=== PATIENT | male | born 1965 | race African-American/Black ===

== ENCOUNTER → 2017-04-16 | Emergency (ER) | payer MEDICAID ==
[~2017-04-16] VITALS: Ht 188 cm; Wt 102.5 kg
[~2017-04-16] MED LIST: ACHD5005 PO; CIPR-225 PO; CYCL10TA9 PO; HYDROmorphone (DILAUDID) 2 MG/ML VIAL IVP STA; HYDROmorphone (DILAUDID) 2 MG/ML VIAL ONE; HYOS0.1283 SL; IOHEXOL 350 MG/ML 100 ML (OMNIPAQUE 350) VIAL IV ONE; LORazepam INJ 2 MG/ML (ATIVAN) VIAL IVP ONE; LORazepam INJ 2 MG/ML (ATIVAN) VIAL ONE; NAPR-243 PO; NS 100 ML (IVPB) BAG IV ONE; NS IV 1000 ML 1,000 ML IV ONE; ONDA4TAB8 PO; fentaNYL INJECTION 100 MCG/2 ML AMP IVP ONE
[2017-04-16 05:26] LABS: BASOPHILS % (AUTO) 0 % (0-10); EOSINOPHILS # (AUTO) 0.2 10^3/uL (0.0-0.3); EOSINOPHILS % (AUTO) 2 % (0-10); LYMPHOCYTES # (AUTO) 5.3 X 10^3 (1.0-4.0); LYMPHOCYTES % (AUTO) 52 % (12-44); MEAN CORPUSCULAR HEMOGLOBIN 31 PG (25-34); MEAN CORPUSCULAR HGB CONC 34 G/DL (32-36); MEAN CORPUSCULAR VOLUME 91 FL (80-99); MEAN PLATELET VOLUME 10.2 FL (7.4-10.4); MONOCYTES # (AUTO) 0.8 X 10^3 (0.0-1.0); MONOCYTES % (AUTO) 8 % (0-12); NEUTROPHILS # (AUTO) 3.9 X 10^3 (1.8-7.8); NEUTROPHILS % (AUTO) 38 % (42-75); PLATELET COUNT 321 10^3/uL (130-400); RED BLOOD COUNT 4.86 10^6/uL (4.35-5.85); RED CELL DISTRIBUTION WIDTH 13.3 % (10.0-14.5); WHITE BLOOD COUNT 10.2 10^3/uL (4.3-11.0)
[2017-04-16 05:42] LABS: ALANINE AMINOTRANSFERASE 18 U/L (0-55); ALBUMIN 3.7 G/DL (3.2-4.5); ANION GAP 11 MMOL/L (5-14); ASPARTATE AMINO TRANSFERASE 16 U/L (5-34); BILIRUBIN,TOTAL 0.1 MG/DL (0.1-1.0); BLOOD UREA NITROGEN 13 MG/DL (7-18); BUN/CREATININE RATIO 13; CALCIUM 9.4 MG/DL (8.5-10.1); CARBON DIOXIDE 24 MMOL/L (21-32); CHLORIDE 108 MMOL/L (98-107); CREATININE SERUM 0.98 MG/DL (0.60-1.30); GFR ESTIMATED > 60; GLUCOSE 95 MG/DL (70-105); LIPASE 38 U/L (8-78); SODIUM 143 MMOL/L (135-145); TOTAL PROTEIN 6.3 G/DL (6.4-8.2)
[2017-04-16 05:47] LABS: BILIRUBIN,URINE NEGATIVE (NEGATIVE); KETONES,URINE NEGATIVE (NEGATIVE); LEUKOCYTE ESTERASE ,URINE 3+ (NEGATIVE); NITRITE,URINE NEGATIVE (NEGATIVE); PH,URINE 6.5 (5-9); PROTEIN,URINE 2+ (NEGATIVE); UROBILINOGEN,URINE NORMAL (NORMAL)
--- NOTE | 2017-04-16 06:22 | ED Abdominal Pain ---
General Chief Complaint: Abdominal/GI Problems Stated Complaint: L ABD PAIN Nursing Triage Note: TO ED 7 [facility]. C/O SEVERE ABD PAIN LLQ, STARTED AT 1999 AFTER EATING PIZZA. HOLDING LEFT POSTERIOR FLANK AND THRASHING ALL OVER BED KICKING FEET Sepsis Screen: No Definite Risk Source of Information: Patient, EMS Exam Limitations: No Limitations (LEXI DOYLE MD) History of Present Illness Time Seen By Provider: 05:12 Initial Comments This 51-year-old man presents to the emergency room via EMS with complaints of severe left lower quadrant and left flank pain. Pain started fairly suddenly around 20:00. He had eaten pizza just prior to that. Patient reports no bowel movements since Friday. He has taken no medications for this pain yet. He denies any fever, vomiting, or diarrhea. He denies any urinary changes. (LEXI DOYLE MD) Allergies and Home Medications Allergies Coded Allergies: No Known Drug Allergies (Unverified , 09/22/10) Home Medications Ciprofloxacin HCl 500 Mg Tablet, 500 MG PO BID, #20 Prescribed by: YESICA GALARZA on 04/16/17 075 Cyclobenzaprine Hcl 10 Mg Tablet, 1 EACH PO Q8HR PRN, #20 Ref 0 Prescribed by: CHASE HENDERSON on 04/04/11 184 Hydrocodone Bit/Acetaminophen 1 Each Tablet, 1-2 EACH PO Q6H PRN, #14 Ref 0 Prescribed by: CHASE HENDERSON on 04/04/11 184 Hyoscyamine Sulfate 0.125 Mg Tab.subl, 1-2 TAB SL Q4H, #10 Prescribed by: YESICA GALARZA on 04/16/17 075 Naproxen 500 Mg Tablet, 1 EACH PO BID PRN, #20 Ref 0 Prescribed by: CHASE HENDERSON on 04/04/11 184 Ondansetron 4 Mg Tab.rapdis, 4 MG PO Q4H, #10 Prescribed by: YESICA GALARZA on 04/16/17 0755 Review of Systems Constitutional: no symptoms reported EENTM: No Symptoms Reported Respiratory: No Symptoms Reported Cardiovascular: No Symptoms Reported Gastrointestinal: See HPI Genitourinary: No Symptoms Reported Musculoskeletal: no symptoms reported Skin: no symptoms reported Psychiatric/Neurological: No Symptoms Reported Endocrine: No Symptoms Reported Hematologic/Lymphatic: No Symptoms Reported (LEXI DOYLE MD) Past Jqnjdno-Lbsyjy-Vbtfht Hx Patient Social History Alcohol Use: Occasionally Uses Recreational Drug Use: Yes (tobacco, etoh, hx of drug abuse) Smoking Status: Current Everyday Smoker Type Used: Cigarettes 2nd Hand Smoke Exposure: No Recent Foreign Travel: No Contact w/Someone Who Travel: No Recent Infectious Disease Expo: No Recent Hopitalizations: No (LEXI DOYLE MD) Seasonal Allergies Seasonal Allergies: No (LEXI DOYLE MD) Respiratory Hx Respiratory Disorders: No (LEXI DOYLE MD) Cardiovascular Hx Cardiac Disorders: No (LEXI DOYLE MD) Neurological Hx Neurological Disorders: No (LEXI DOYLE MD) Reproductive System Hx Reproductive Disorders: No (LEXI DOYLE MD) Genitourinary Hx Genitourinary Disorders: No (LEXI DOYLE MD) Gastrointestinal Hx Gastrointestinal Disorders: No (LEXI DOYLE MD) Musculoskeletal Hx Musculoskeletal Disorders: Yes (disc disease) Musculoskeletal Disorders: Degenerate Disk Disease (LEXI DOYEL MD) Endocrine Hx Endocrine Disorders: No (LEXI DOYLE MD) HEENT HX ENT Disorders: No (LEXI DOYLE MD) Cancer Hx Cancer: No (LEXI DOYLE MD) Psychosocial Hx Psychiatric Problems: No (LEXI DOYLE MD) Integumentary HX Skin/Integumentary Disorder: No (LEXI DOYLE MD) Blood Transfusions Hx Blood Disorders: No (LEXI DOYLE MD) Reviewed Nursing Assessment Reviewed/Agree w Nursing PMH: No (LEXI DOYLE MD) Family Medical History Significant Family History: No Pertinent Family Hx (LEXI DOYLE MD) Physical Exam Vital Signs VS - Last 72 Hours, by Label 04/16/17 04/16/17 05:01 06:18 Temp 98.5 98.5 Pulse 81 Resp 24 B/P (MAP) 121/107 Pulse Ox 96 O2 Delivery Room Air (LEE ANN,YESICA K DO) Vital Signs Capillary Refill : Less Than 3 Seconds (LEXI DOYLE MD) General Appearance: WD/WN, moderate distress HEENT: PERRL/EOMI, normal ENT inspection Neck: normal inspection Respiratory: lungs clear, normal breath sounds, no respiratory distress, no accessory muscle use Cardiovascular: regular rate, rhythm, no edema, no murmur Gastrointestinal: normal bowel sounds, soft, tenderness (left lower quadrant and left flank) Extremities: normal inspection, no pedal edema Neurologic/Psychiatric: medical resident II-XII nml as tested, alert, oriented x 3, other ( very anxious, bordering on hyperventilation. Neurologic exam was initially difficult to obtain due to patient's pain. Once pain was controlled, patient was noted to have diffuse weakness, tremoring, dystonic movements, and stuttering. He is somewhat confused.) Skin: normal color, warm/dry (LEXI DOYLE MD) Progress/Results/Core Measures Results/Orders Lab Results Laboratory Tests Test 04/16/17 05:10 04/16/17 05:37 Range/Units White Blood Count 10.2 4.3-11.0 10^3/uL Red Blood Count 4.86 4.35-5.85 10^6/uL Hemoglobin 14.8 13.3-17.7 G/DL Hematocrit 44 40-54 % Mean Corpuscular Volume 91 80-99 FL Mean Corpuscular Hemoglobin 31 25-34 PG Mean Corpuscular Hemoglobin Concent 34 32-36 G/DL Red Cell Distribution Width 13.3 10.0-14.5 % Platelet Count 321 130-400 10^3/uL Mean Platelet Volume 10.2 7.4-10.4 FL Neutrophils (%) (Auto) 38 L 42-75 % Lymphocytes (%) (Auto) 52 H 12-44 % Monocytes (%) (Auto) 8 0-12 % Eosinophils (%) (Auto) 2 0-10 % Basophils (%) (Auto) 0 0-10 % Neutrophils # (Auto) 3.9 1.8-7.8 X 10^3 Lymphocytes # (Auto) 5.3 H 1.0-4.0 X 10^3 Monocytes # (Auto) 0.8 0.0-1.0 X 10^3 Eosinophils # (Auto) 0.2 0.0-0.3 10^3/uL Basophils # (Auto) 0.0 0.0-0.1 10^3/uL Sodium Level 143 135-145 MMOL/L Potassium Level 4.0 3.6-5.0 MMOL/L Chloride Level 108 H 98-107 MMOL/L Carbon Dioxide Level 24 21-32 MMOL/L Anion Gap 11 5-14 MMOL/L Blood Urea Nitrogen 13 7-18 MG/DL Creatinine 0.98 0.60-1.30 MG/DL Estimat Glomerular Filtration Rate > 60 BUN/Creatinine Ratio 13 Glucose Level 95 70-105 MG/DL Calcium Level 9.4 8.5-10.1 MG/DL Total Bilirubin 0.1 0.1-1.0 MG/DL Aspartate Amino Transf (AST/SGOT) 16 5-34 U/L Alanine Aminotransferase (ALT/SGPT) 18 0-55 U/L Alkaline Phosphatase 76 40-136 U/L Total Protein 6.3 L 6.4-8.2 G/DL Albumin 3.7 3.2-4.5 G/DL Lipase 38 8-78 U/L Urine Color YELLOW Urine Clarity SLIGHTLY CLOUDY Urine pH 6.5 5-9 Urine Specific Benson 1.015 L 1.016-1.022 Urine Protein 2+ H NEGATIVE Urine Glucose (UA) NEGATIVE NEGATIVE Urine Ketones NEGATIVE NEGATIVE Urine Nitrite NEGATIVE NEGATIVE Urine Bilirubin NEGATIVE NEGATIVE Urine Urobilinogen NORMAL NORMAL MG/DL Urine Leukocyte Esterase 3+ H NEGATIVE Urine RBC (Auto) NEGATIVE NEGATIVE Urine RBC NONE /HPF Urine WBC 5-10 H /HPF Urine Squamous Epithelial Cells 10-25 H /HPF Urine Crystals NONE /LPF Urine Bacteria TRACE /HPF Urine Casts NONE /LPF Urine Mucus NEGATIVE /LPF Urine Other LG SPERM H /HPF Urine Culture Indicated YES Urine Opiates Screen NEGATIVE NEGATIVE Urine Oxycodone Screen NEGATIVE NEGATIVE Urine Methadone Screen NEGATIVE NEGATIVE Urine Propoxyphene Screen NEGATIVE NEGATIVE Urine Barbiturates Screen NEGATIVE NEGATIVE Ur Tricyclic Antidepressants Screen NEGATIVE NEGATIVE Urine Phencyclidine Screen NEGATIVE NEGATIVE Urine Amphetamines Screen POSITIVE H NEGATIVE Urine Methamphetamines Screen NEGATIVE NEGATIVE Urine Benzodiazepines Screen NEGATIVE NEGATIVE Urine Cocaine Screen NEGATIVE NEGATIVE Urine Cannabinoids Screen NEGATIVE NEGATIVE (YESICA GALARZA DO) Medications Given in ED Current Medications Medications Dose Ordered Sig/Alo Route Start Time Stop Time Status Last Admin Dose Admin Fentanyl Citrate 75 mcg ONCE ONCE IVP 04/16/17 05:15 04/16/17 05:18 DC 04/16/17 05:22 75 MCG Fentanyl Citrate 75 mcg ONCE ONCE IVP 04/16/17 06:15 04/16/17 06:16 DC 04/16/17 06:18 75 MCG Iohexol 100 ml ONCE ONCE IV 04/16/17 07:00 04/16/17 07:01 DC 04/16/17 06:53 100 ML Lorazepam 0.5 mg ONCE ONCE IVP 04/16/17 06:45 04/16/17 06:46 DC 04/16/17 06:45 0.5 MG Sodium Chloride 100 ml ONCE ONCE IV 04/16/17 07:00 04/16/17 07:01 DC 04/16/17 06:53 80 ML Sodium Chloride 1,000 ml @ 0 mls/hr Q0M ONCE IV 04/16/17 05:15 04/16/17 05:18 DC 04/16/17 05:22 999 MLS/HR (LEE ANN,YESICA K DO) Vital Signs/I&O Vital Sign - Last 12Hours 04/16/17 04/16/17 05:01 06:18 Temp 98.5 98.5 Pulse 81 Resp 24 B/P (MAP) 121/107 Pulse Ox 96 O2 Delivery Room Air (LEE ANN,YESICA K DO) Blood Pressure Mean: 112 Progress Note #1: Time: 06:21 Progress Note Patient was initially treated with fentanyl 75 g. Initial workup shows no significant abnormalities. CT of the abdomen and pelvis with contrast was ordered. Pain did not remain controlled and a repeat dose of fentanyl was ordered. Progress Note #2: Time: 06:[address] called requesting more medication for pain as patient cannot lie still for the CT scan. A milligram of Dilaudid and 0.5 mg of Ativan was ordered. Progress Note #3: Time: 07:08 Progress Note Patient's behavior continues to be on. He intermittently is stuttering, demonstrating dystonic movements, and exhibiting global weakness. He also is now excessively itching. He denies any substance abuse but states his son may have put something in his medicine box. When asked about the stuttering, he states ever since he has been taking classes to learn other languages he stutters because he has difficulty sorting out the languages. He is a relatively poor historian as is his significant other. CT of the head has been ordered to investigate his bizarre neurological symptoms. Patient's bladder was fairly full on the CT scan. He just voided about 400 mL of urine but states this did not improve his pain. He reports he feels like there are "BBs" under his skin in his left lower abdomen and "knots" in his left lower back. Significant other states patient has been having these dystonic movements and stuttering speech for the past 3 or 4 days. Progress Note #4: Time: 07:15 Progress Note Care of this patient is being transferred to Dr. Galarza at this time. Verbal report was given. (LEXI DOYLE MD) Progress Note : Progress Note 0715--ASSUMED CARE FROM DR. DOYLE, CT HEAD RESULTS PENDING. PT IS SLEEPING AT THIS TIME PT STATES HE FEELS MUCH BETTER AT DISMISSAL (YESICA GALARZA DO) Diagnostic Imaging Diagonstic Imaging: CT Plain Films/CT/US/NM/MRI: head Diagonstic Imaging: CT Plain Films/CT/US/NM/MRI: abdomen, pelvis Comments NAME: RADHA WANG [facility] REC#: [id number] PT STATUS: REG ER : 1965 PHYSICIAN: LEXI DOYLE MD ADMIT DATE: 04/16/17/ER Signed Date of Exam: 04/16/17 CT ABDOMEN/PELVIS W PROCEDURE: CT abdomen and pelvis with contrast. TECHNIQUE: Multiple contiguous axial images were obtained through the abdomen and pelvis after administration of intravenous contrast. INDICATION: Left lower quadrant pain since yesterday after eating pizza. FINDINGS: The lung bases are clear. The liver appears normal. Gallbladder is normal. Bile ducts are not dilated. The pancreas and spleen are normal. The adrenal glands appear normal. Kidneys appear normal. There is normal enhancement of the abdominal organs and vessels following IV contrast. Vessels show no evidence of aneurysm. There is marked distention of the stomach which is fluid-filled. There is very little fluid in the duodenum and small bowel which does raise question of gastric outlet obstruction. The colon shows normal stool and gas pattern without evidence of obstruction or constipation. There is no free air or free fluid. Bladder appears normal. IMPRESSION: 1. Marked distention of the stomach raising concern of gastric outlet obstruction. 2. No findings are seen to indicate appendicitis or diverticulitis. Dictated by: Dictated on workstation # [id number] Dict: 04/16/17 0701 Trans: 04/16/17 1149 Interpreted by: PATTI GODFREY MD Electronically signed by: PATTI GODFREY MD 04/16/17 1149 (LEXI DOYLE MD) Comments CT HEAD--NO ACUTE PROCESS, PER RADIOLOGIST REPORT @ 0750 Reviewed: Reviewed by Me (YESICA GALARZA DO) Departure Impression Impression: Primary Impression: Abdominal pain Qualified Codes: R10.32 - Left lower quadrant pain Additional Impression: Urinary tract infection Qualified Codes: N39.0 - Urinary tract infection, site not specified Disposition: 01 HOME, SELF-CARE Condition: Stable Departure-Patient Inst. Referrals: [facility] (PCP) Primary Care Physician DIEUDONNE MCKEON (Family) Primary Care Physician Patient Instructions: Acute Abdomen (Belly Pain), Adult (DC), Urinary Tract Infection, Adult (DC) Add. Discharge Instructions: CLEAR LIQUIDS--WATER, BROTH, JELLO, GATORADE TOMORROW IF YOU ARE BETTER, ADD BRATS DIET TO CLEAR LIQUIDS--BANANAS, RICE, APPLESAUCE, TOAST, SALINTES FOLLOW UP WITH YOUR DR TOMORROW IF NO BETTER All discharge instructions reviewed with patient and/or family. Voiced understanding. Scripts Hyoscyamine Sulfate (Levsin-Sl) 0.125 Mg Tab.subl 1-2 TAB SL Q4H for Abdominal Pain, #10 TAB Prov: YESICA GALARZA DO 04/16/17 Ondansetron (Zofran Odt) 4 Mg Tab.rapdis 4 MG PO Q4H for Nausea/Vomiting, #10 TAB Prov: YESICA GALARZA DO 04/16/17 Ciprofloxacin HCl (Cipro) 500 Mg Tablet 500 MG PO BID, #20 TAB Prov: YESICA GALARZA DO 04/16/17 LEXI DOYLE MD April 16, 2017 06:21 YESICA GALARZA DO April 16, 2017 07:48
--- NOTE | 2017-04-16 07:10 | Diagnostic Imaging Report ---
PROCEDURE: CT abdomen and pelvis with contrast. TECHNIQUE: Multiple contiguous axial images were obtained through the abdomen and pelvis after administration of intravenous contrast. INDICATION: Left lower quadrant pain since yesterday after eating pizza. FINDINGS: The lung bases are clear. The liver appears normal. Gallbladder is normal. Bile ducts are not dilated. The pancreas and spleen are normal. The adrenal glands appear normal. Kidneys appear normal. There is normal enhancement of the abdominal organs and vessels following IV contrast. Vessels show no evidence of aneurysm. There is marked distention of the stomach which is fluid-filled. There is very little fluid in the duodenum and small bowel which does raise question of gastric outlet obstruction. The colon shows normal stool and gas pattern without evidence of obstruction or constipation. There is no free air or free fluid. Bladder appears normal. IMPRESSION: 1. Marked distention of the stomach raising concern of gastric outlet obstruction. 2. No findings are seen to indicate appendicitis or diverticulitis. Dictated by: Dictated on workstation # [id number]
--- NOTE | 2017-04-16 07:40 | Diagnostic Imaging Report ---
PROCEDURE: CT head without contrast. TECHNIQUE: Multiple contiguous axial images were obtained through the brain without the use of intravenous contrast. INDICATION: Failed neurological test in emergency room. Eyes were not following. Comparison studies: None. FINDINGS: Noncontrast CT scanning of the head demonstrates no mass effect, midline shift, hemorrhage, or extra-axial fluid collections. Herman-white matter differentiation is normal. Ventricles, cortical sulci, and basilar cisterns appear normal. Vascular structures appear a little hyperdense. The patient may have an elevated hematocrit level. This could also be a normal finding. Bone windows appear normal. IMPRESSION: Essentially normal CT scan of the head. The vascular structures appear a little dense. Patient could have an elevated hematocrit level. Dictated by: Dictated on workstation # [id number]
[2017-04-16 08:15] VITALS: BP 151/96
== END | disposition home or self-care (01) ==
LOC: EDUNIT# 05:13 → ER 05:15
DX: R10.32 Left lower quadrant pain (principal); N39.0 Urinary tract infection, site not specified; R25.8 Other abnormal involuntary movements; F98.5 Adult onset fluency disorder; K31.89 Other diseases of stomach and duodenum; F17.210 Nicotine dependence, cigarettes, uncomplicated
CPT/HCPCS: 36415; 70450; 74177; 80053; 80306; 81000; 83690; 85025; 87088; 96361; 96374; 96375; 96376

== ENCOUNTER 2018-06-15 10:18 | Emergency (ER) | payer MEDICAID ==
[~2018-06-15] VITALS: Ht 190.5 cm; Wt 90.8 kg
[~2018-06-15 10:18] MED LIST changes: -HYDROmorphone (DILAUDID) 2 MG/ML VIAL IVP STA; -HYDROmorphone (DILAUDID) 2 MG/ML VIAL ONE; -IOHEXOL 350 MG/ML 100 ML (OMNIPAQUE 350) VIAL IV ONE; -LORazepam INJ 2 MG/ML (ATIVAN) VIAL IVP ONE; -LORazepam INJ 2 MG/ML (ATIVAN) VIAL ONE; -NS 100 ML (IVPB) BAG IV ONE; -NS IV 1000 ML 1,000 ML IV ONE; -fentaNYL INJECTION 100 MCG/2 ML AMP IVP ONE
[2018-06-15] MEDS ORDERED: HYDR-757 PO (10:37)
[2018-06-15] MEDS ORDERED: NAPR-1071 PO (10:37)
--- NOTE | 2018-06-15 10:37 | ED Upper Extremity ---
General Stated Complaint: RIGHT WRIST INJ Source: patient Exam Limitations: no limitations History of Present Illness Date Seen by Provider: Jun 15, 2018 Time Seen by Provider: 10:32 Initial Comments to ER with reports of a right wrist injury. He states that he was pushed mowing his lawn yesterday when his hand slipped off of the handle and was extended dorsally. He states he has a prior history of wrist injury 10 placement about 13 years ago in [place]. He believes his wrist is disconnected from his forearm stating that "it just flops". He has no swelling but he has numbness of the right pinky finger. Onset: yesterday Severity: moderate Pain/Injury Location: right wrist, right hand Method of Injury: other Modifying Factors: Worse With Movement Allergies and Home Medications Allergies Coded Allergies: No Known Drug Allergies (Unverified , 09/22/10) Home Medications Ciprofloxacin HCl 500 Mg Tablet, 500 MG PO BID Prescribed by: YESICA NANCE on 04/16/17754 Cyclobenzaprine Hcl 10 Mg Tablet, 1 EACH PO Q8HR PRN Prescribed by: CHASE HENDERSON on 04/04/111841 Hydrocodone Bit/Acetaminophen 1 Each Tablet, 1-2 EACH PO Q6H PRN Prescribed by: CHASE HENDERSON on 04/04/111841 Hydrocodone/Acetaminophen 1 Each Tablet, 1 EACH PO Q4H PRN for PAIN-SEVERE Prescribed by: DIDI OLIVER on 06/15/18 1037 Hyoscyamine Sulfate 0.125 Mg Tab.subl, 1-2 TAB SL Q4H Prescribed by: YESICA NANCE on 04/16/17754 Naproxen 500 Mg Tablet, 1 EACH PO BID PRN Prescribed by: CHASE HENDERSON on 04/04/111841 Naproxen 500 Mg Tablet, 500 MG PO BID PRN for PAIN-SEVERE Prescribed by: DIDI OLIVER on 06/15/18 1037 Ondansetron 4 Mg Tab.rapdis, 4 MG PO Q4H Prescribed by: YESICA NANCE on 04/16/17754 Patient Home Medication List Home Medication List Reviewed: Yes Constitutional: see HPI EENTM: see HPI Respiratory: no symptoms reported Cardiovascular: no symptoms reported Genitourinary: no symptoms reported Musculoskeletal: see HPI, joint pain Skin: no symptoms reported Psychiatric/Neurological: No Symptoms Reported Past Ttdbbch-Kmvqzt-Fwxqdp Hx Patient Social History Type Used: Cigarettes 2nd Hand Smoke Exposure: No Recent Foreign Travel: No Contact w/Someone Who Travel: No Recent Hopitalizations: No Seasonal Allergies Seasonal Allergies: No Past Medical History Surgeries: No Respiratory: No Cardiac: No Neurological: No Reproductive Disorders: No Genitourinary: No Gastrointestinal: No Musculoskeletal: Yes (5 ruptured disc) Degenerate Disk Disease HEENT: No Cancer: No Psychosocial: No Integumentary: No Blood Disorders: No Family Medical History No Pertinent Family Hx Physical Exam Vital Signs Vital Signs - First Documented 06/15/18 06/15/18 10:37 11:39 Temp 98.5 Pulse 95 Resp 16 B/P (MAP) 112/83 (93) Pulse Ox 99 O2 Delivery Room Air Capillary Refill : Height, Weight, BMI Height: 6'2.00" Weight: 226lbs. oz. 102.602001se; BMI Method:Stated General Appearance: WD/WN, no apparent distress HEENT: PERRL/EOMI, normal ENT inspection Neck: non-tender, full range of motion Respiratory: no respiratory distress, no accessory muscle use Gastrointestinal: normal bowel sounds, non tender Shoulder: normal inspection, non-tender Elbow/Forearm: normal inspection, non-tender Wrist: Yes normal inspection, Yes pain, Yes soft tissue tenderness Hand: normal inspection, non-tender Neurologic/Tendon: normal sensation, normal motor functions Neurologic/Psychiatric: alert, normal mood/affect, oriented x 3 Skin: normal color, warm/dry he reports numbness to the pinky finger,All other fingers maintain normal sensation and all fingers have capillary refill. Progress/Results/Core Measures Results/Orders My Orders Orders - DIDI OLIVER APRN Wrist, Right, 3 Views Or More (06/15/18 10:31) Vital Signs/I&O 06/15/18 06/15/18 10:37 11:39 Temp 98.5 98.5 Pulse 95 95 Resp 16 B/P (MAP) 112/83 (93) 112/83 Pulse Ox 99 95 O2 Delivery Room Air Room Air Departure Communication (Admissions) NAME: RADHA WANG [facility] REC#: [id number] PT STATUS: REG ER : 1965 PHYSICIAN: DIDI OLIVER APRN ADMIT DATE: 06/15/18/ER Draft Date of Exam:06/15/18 WRIST, RIGHT, 3 VIEWS OR MORE INDICATION: Injury to right wrist. TECHNIQUE: AP, oblique, and lateral views of the right wrist were obtained. FINDINGS: No fracture or acute bony abnormality is seen. The joint spaces are unremarkable. IMPRESSION: Negative right wrist. Dictated on workstation # [id number] Dict: 06/15/18 1113 Trans: 06/15/18 1114 [id number] Interpreted by: JYOTHI ALEJANDRA MD Electronically signed by: Impression Primary Impression: Wrist injury Disposition: HOME, SELF-CARE Condition: Stable Departure-Patient Inst. Decision time for Depature: 10:35 Referrals: KERON RAMIRES MD, MARK E DO NO,LOCAL PHYSICIAN (PCP) Primary Care Physician JASVIR BANKS MD, MICHAEL P MD Patient Instructions: Common Wrist Injuries Add. Discharge Instructions: 1. Call one of the orthopedic surgeons listed for further evaluation and treatment. Wear the wrist splint at all times until you follow-up. Pain medication as directed. Scripts Hydrocodone/Acetaminophen (Anson 5-325 Tablet) 1 Each Tablet 1 EACH PO Q4H PRN for PAIN-SEVERE, #5 TAB Prov: DIDI OLIVER APRN 06/15/18 Naproxen (Naprosyn) 500 Mg Tablet 500 MG PO BID PRN for PAIN-SEVERE, #30 TAB Prov: DIDI OLIVER APRN 06/15/18 DIDI OLIVER APRN Jun 15, 2018 10:37
--- NOTE | 2018-06-15 11:15 | Diagnostic Imaging Report ---
INDICATION: Injury to right wrist. TECHNIQUE: AP, oblique, and lateral views of the right wrist were obtained. FINDINGS: No fracture or acute bony abnormality is seen. The joint spaces are unremarkable. IMPRESSION: Negative right wrist. Dictated by: Dictated on workstation # [id number]
[2018-06-15 11:39] VITALS: BP 112/83
== END 2018-06-15 11:40 | disposition home or self-care (01) ==
LOC: EDUNIT# 10:18 → ER 10:20
DX: S69.91XA Unspecified injury of right wrist, hand and finger(s), initial encounter (principal); W28.XXXA Contact with powered lawn mower, initial encounter
CPT/HCPCS: 73110

== ENCOUNTER 2019-07-20 15:15 | Emergency (ER) | payer MEDICAID ==
[~2019-07-20] VITALS: Ht 188 cm; Wt 102.5 kg
[~2019-07-20 15:15] MED LIST changes: +HYDR-4226 PO; +NAPR-1071 PO
[2019-07-20 15:53] LABS: BASOPHILS # (AUTO) 0.1 10^3/uL (0.0-0.1); BASOPHILS % (AUTO) 1 % (0-10); EOSINOPHILS # (AUTO) 0.7 10^3/uL (0.0-0.3); EOSINOPHILS % (AUTO) 5 % (0-10); HEMATOCRIT 39 % (40-54); HEMOGLOBIN 12.9 G/DL (13.3-17.7); LYMPHOCYTES # (AUTO) 3.3 X 10^3 (1.0-4.0); LYMPHOCYTES % (AUTO) 24 % (12-44); MEAN CORPUSCULAR HEMOGLOBIN 30 PG (25-34); MEAN CORPUSCULAR HGB CONC 33 G/DL (32-36); MEAN CORPUSCULAR VOLUME 90 FL (80-99); MEAN PLATELET VOLUME 9.3 FL (7.4-10.4); MONOCYTES # (AUTO) 1.2 X 10^3 (0.0-1.0); MONOCYTES % (AUTO) 9 % (0-12); NEUTROPHILS # (AUTO) 8.5 X 10^3 (1.8-7.8); NEUTROPHILS % (AUTO) 62 % (42-75); PLATELET COUNT 408 10^3/uL (130-400); RED CELL DISTRIBUTION WIDTH 13.3 % (10.0-14.5); WHITE BLOOD COUNT 13.9 10^3/uL (4.3-11.0)
[2019-07-20 16:16] LABS: ALANINE AMINOTRANSFERASE 35 U/L (0-55); ALBUMIN 3.4 GM/DL (3.2-4.5); ALKALINE PHOSPHATASE 102 U/L (40-136); BILIRUBIN,TOTAL 0.3 MG/DL (0.1-1.0); BUN/CREATININE RATIO 9; CALCIUM 9.9 MG/DL (8.5-10.1); CARBON DIOXIDE 28 MMOL/L (21-32); CHLORIDE 103 MMOL/L (98-107); CREATINE KINASE 60 U/L (30-200); CREATININE SERUM 0.91 MG/DL (0.60-1.30); GFR ESTIMATED > 60; GLUCOSE 165 MG/DL (70-105); MAGNESIUM 2.3 MG/DL (1.6-2.4); POTASSIUM 3.7 MMOL/L (3.6-5.0); SODIUM 139 MMOL/L (135-145); TOTAL PROTEIN 7.1 GM/DL (6.4-8.2)
--- NOTE | 2019-07-20 16:30 | Diagnostic Imaging Report ---
INDICATION: Cough and left-sided chest pain. TIME OF EXAM: 4:26 PM COMPARISON: No prior studies are available for comparison. FINDINGS: The heart size is normal. The pulmonary vascularity is unremarkable. The lungs are clear. No infiltrate, effusion or pneumothorax is detected. IMPRESSION: No acute cardiopulmonary process is detected. Dictated by: Dictated on workstation # [id number]
[2019-07-20 17:24] LABS: BILIRUBIN,URINE NEGATIVE (NEGATIVE); CLARITY,URINE CLEAR; COLOR,URINE YELLOW; GLUCOSE, URINE (UA) NEGATIVE (NEGATIVE); KETONES,URINE NEGATIVE (NEGATIVE); LEUKOCYTE ESTERASE ,URINE 1+ (NEGATIVE); NITRITE,URINE NEGATIVE (NEGATIVE); PH,URINE 7 (5-9); PROTEIN,URINE 1+ (NEGATIVE); UROBILINOGEN,URINE 8 MG/DL (NORMAL)
[2019-07-20 17:31] LABS: BACTERIA,URINE TRACE /HPF
[2019-07-20] MEDS ORDERED: AZIT250T12 PO (18:45)
[2019-07-20] MEDS ORDERED: KETOROLAC 30 MG/ML VIAL IVP ONE (18:45)
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
[2019-07-20 18:51] VITALS: BP 119/74
== END 2019-07-20 18:59 | disposition home or self-care (01) ==
LOC: EDUNIT# 15:15 → ER 15:16
DX: R05 Cough (principal); M79.10 Myalgia, unspecified site; I10 Essential (primary) hypertension; F17.210 Nicotine dependence, cigarettes, uncomplicated
CPT/HCPCS: 36415; 71046; 80053; 81000; 82550; 83735; 85025

== ENCOUNTER 2019-12-16 17:56 | Emergency (ER) | payer MEDICAID, OTHER ==
[~2019-12-16] VITALS: Ht 182.8 cm; Wt 90.9 kg
[~2019-12-16 17:56] MED LIST changes: +AZIT250T12 PO
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
--- NOTE | 2019-12-16 18:55 | Diagnostic Imaging Report ---
PROCEDURE: CT head and CT cervical spine without contrast. TECHNIQUE: Multiple contiguous axial images were obtained through the brain and cervical spine without the use of intravenous contrast. Sagittal and coronal reformations through the cervical spine were then performed. Auto Exposure Controls were utilized during the CT exam to meet ALARA standards for radiation dose reduction. INDICATION: Fall. Head pain. COMPARISON: 04/16/2017 FINDINGS: CT head: The ventricles and cortical sulci are age-appropriate. There is no midline shift or mass-effect. No acute intra-axial hemorrhage is seen. There are no abnormal areas of increased or decreased density to suggest acute hemorrhage or edema. No extra-axial masses or collections are present. The bony calvarium is intact. The visualized paranasal sinuses are unremarkable. The mastoid air cells are clear. CT cervical spine: Evaluation of the static alignment shows straightening of normal lordotic curvature of the cervical spine. This, however, may be related to patient positioning and spasm. There is no significant anteroretrolisthesis. There is no evidence of jumped facets. Vertebral body heights are maintained. There is no evidence of acute fracture. No bony fragments are seen within the spinal canal. There are advanced multilevel degenerative changes consisting of intervertebral disc height loss with anterior and posterior disc osteophyte complex formations, as well as multilevel facet arthropathy. Surrounding pre and paravertebral soft tissue structures are unremarkable. Included portions of the lung apices show no additional acute abnormalities. Subpleural air trapping is noted. IMPRESSION: 1. No acute intracranial abnormality. No CT evidence of mass, acute infarct or intracranial hemorrhage. 2. No acute fracture or dislocation of the cervical spine. 3. Advanced multilevel degenerative changes of the cervical spine. Dictated by: Dictated on workstation # [id number]
--- NOTE | 2019-12-16 18:56 | Diagnostic Imaging Report ---
Clinical indication: Patient is status post fall. Patient has lower back pain. Exam: Axial CT scan of the thoracic and lumbar spine performed without IV contrast. Sagittal and coronal reformations were performed. Bone and soft tissue windows were created. Auto Exposure Controls were utilized during the CT exam to meet ALARA standards for radiation dose reduction. Comparison: X-ray of the lower lumbar spine dated 04/04/2011. Findings: There is no acute thoracic or lumbar fracture or dislocation. Thoracic and lumbar spine has normal alignment. There are hypertrophic spurs involving the thoracic and lumbar spine. There is lower lumbar spine facet arthropathy. There is moderate to severe bilateral neural foramen narrowing involving the L2-S1 levels. There is no significant bony central canal narrowing. There are multiple areas of bony neural foramen narrowing involving the left upper thoracic and lower thoracic region. The visualized extrathoracic, and lumbar soft tissue structures are unremarkable. Emphysematous lung disease is seen. Impression: There is no acute thoracic spine and lumbar spine fracture or dislocation. Dictated by: Dictated on workstation # [id number]
--- NOTE | 2019-12-16 19:24 | Diagnostic Imaging Report ---
CLINICAL INDICATION: Patient is status post fall. Patient complains of pain in the right knee. Patient has right knee abrasions and posterior head pain. EXAM: X-ray of the right knee, 3 views. COMPARISON: None. FINDINGS: There is no acute fracture or dislocation. There is no significant bone or joint abnormality. There is no knee effusion. IMPRESSION: There is no acute fracture or dislocation. Dictated by: Dictated on workstation # [id number]
--- NOTE | 2019-12-16 19:27 | Diagnostic Imaging Report ---
INDICATION: Fall. Pain. COMPARISON: 07/20/2019 FINDINGS: Frontal radiograph view of the chest shows normal cardiac silhouette and pulmonary vasculature. Lungs are clear. There is no focal consolidation, large effusion, nor pneumothorax. Multiple dedicated radiographic views of the bilateral ribs were also obtained. No healing or displaced rib fractures are seen on either side. No other gross acute osseous abnormality is seen. IMPRESSION: 1. No acute cardiopulmonary process. 2. No healing or displaced rib fractures. Dictated by: Dictated on workstation # [id number]
--- NOTE | 2019-12-16 19:29 | Diagnostic Imaging Report ---
CLINICAL INDICATION: Patient is status post fall with low back pain. EXAMINATION: X-ray of the pelvis AP view and x-ray of both hips, AP and frog-leg views. COMPARISON: None. FINDINGS: There is no acute fracture or dislocation. There is mildly hypertrophic spurs involving the bilateral proximal femoral head/neck junctional regions. Sacral leg joint shows no significant abnormality. The sacrum and pelvic bones are unremarkable. There is spurring of the lower lumbar spine. IMPRESSION: 1: There is no acute fracture or dislocation. 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 Dictated by: Dictated on workstation # [id number]
--- NOTE | 2019-12-16 19:30 | Diagnostic Imaging Report ---
CLINICAL INDICATION: Patient is status post fall with hand pain. EXAM: X-ray of the left hand, 3 views. COMPARISON: X-ray of the left hand dated 03/21/2007. FINDINGS: There is no acute fracture or dislocation. There are stable chronic soft tissue calcification seen adjacent to the 5th metacarpal bone. There is progression of small spurs involving the left MCP joint. The remainder of the left hand and wrist shows no significant abnormality. IMPRESSION: There is no acute fracture or dislocation. Dictated by: Dictated on workstation # [id number]
[2019-12-16] MEDS ORDERED: ACET-2267 PO (19:41)
[2019-12-16] MEDS ORDERED: IBUP-1780 PO (19:41)
[2019-12-16 19:45] VITALS: BP 142/91
== END 2019-12-16 19:46 ==
LOC: EDUNIT# 17:56 → ER 17:57
DX: S60.512A Abrasion of left hand, initial encounter (principal); S80.211A Abrasion, right knee, initial encounter; M54.9 Dorsalgia, unspecified; I10 Essential (primary) hypertension; F17.210 Nicotine dependence, cigarettes, uncomplicated; W18.39XA Other fall on same level, initial encounter; Y92.410 Unspecified street and highway as the place of occurrence of the external cause
CPT/HCPCS: 70450; 71111; 72125; 72128; 72131; 73130; 73523; 73562

== ENCOUNTER 2022-11-04 17:18 | Observation (INO) | payer SELFPAY ==
[~2022-11-04] VITALS: Ht 188 cm; Wt 87.2 kg
[~2022-11-04 17:18] MED LIST changes: +ACET-2267 PO; +IBUP-1780 PO
--- NOTE | 2022-11-04 17:34 | ED General ---
General Chief Complaint: Unresponsive Stated Complaint: UNRESPONSIVE Nursing Triage Note: PT TO RM 7 BY EMS WITH CC OF POSSIBLE OVERDOSE AND UNRESPONSIVE. PT RECIEVED NARCAN X2 BY EMS. SPO2 AT THIS TIME 97%. PINPOINT PUPILS. PT SLEEPING AT THIS TIME Source of Information: Patient, EMS Exam Limitations: Intoxication (DEBBIE MIMS MD) History of Present Illness Date Seen by Provider: Nov 04, 2022 Time Seen by Provider: 17:25 Initial Comments 57-year-old male with unknown past medical history coming in via EMS due to unresponsiveness. Patient was called out via EMS due to unresponsiveness. On their arrival he was laying next to a "crack pipe" with concerns for doing meth amphetamines recently. They noticed pinpoint pupils and gave 2 mg of Narcan x2 with no real change in his response. (DEBBIE MIMS MD) Allergies and Home Medications Allergies Coded Allergies: No Known Drug Allergies (Unverified , 09/22/10) Patient Home Medication List Home Medication List Reviewed: Yes (DIDI OLIVER APRN) Acetaminophen (Tylenol Extra Strength) 500 Mg Tablet, 1,000 MG PO Q8H PRN for PAIN-BREAKTHROUGH Prescribed by: ALIYAH CHAVEZ on 12/16/191940 Amoxicillin/Potassium Clav (Augmentin 500-125 Tablet) 500 Mg-125 Mg Tablet, 1 EACH PO BID Prescribed by: DIDI OLIVER on 11/04/221930 Azithromycin (Azithromycin) 250 Mg Tablet, 250 MG PO UD Prescribed by: LEXI WILLIAM on 07/20/191844 Ibuprofen (Ibuprofen) 800 Mg Tablet, 800 MG PO Q8H PRN for PAIN-MILD Prescribed by: ALIYAH CHAVEZ on 12/16/191940 Review of Systems Review of Systems Constitutional: see HPI, other (Able to obtain) (DIDI OLIVER APRN) Past Kmmebzv-Pbmbrg-Rbybew Hx Seasonal Allergies Seasonal Allergies: No (DEBBIE MIMS MD) Past Medical History Surgeries: Yes (PINS PLACED IN RT WRIST.) Orthopedic Respiratory: No Cardiac: Yes Hypertension Neurological: No Reproductive Disorders: No Genitourinary: No Gastrointestinal: No Musculoskeletal: Yes (5 ruptured disc) Degenerate Disk Disease Endocrine: Yes (Hyperglycemia) HEENT: No Cancer: No Psychosocial: No Integumentary: No Blood Disorders: No (DEBBIE MIMS MD) Family Medical History No Pertinent Family Hx (DEBBIE MIMS MD) Physical Exam Vital Signs Vital Signs - First Documented 11/04/22 17:20 Temp 35.8 Pulse 72 Resp 19 B/P (MAP) 109/68 (82) Pulse Ox 97 O2 Delivery Room Air (DIDI OLIVER APRN) Vital Signs Capillary Refill : Less Than 3 Seconds (DEBBIE MIMS MD) Height, Weight, BMI Height: 6'2.00" Weight: 226lbs. 3.0oz. 102.558471io; 23.00 BMI Method:Stated (DEBBIE MIMS MD) General Appearance: No Apparent Distress, WD/WN, Other Eyes: Bilateral Eye Normal Inspection, Bilateral Eye PERRL Neck: Full Range of Motion, Normal Inspection Respiratory: No Accessory Muscle Use, No Respiratory Distress Cardiovascular: Regular Rate, Rhythm, Normal Peripheral Pulses Gastrointestinal: Normal Bowel Sounds, Non Tender, Soft Extremity: Normal Capillary Refill, Normal Inspection Neurologic/Psychiatric: Alert, Oriented x3 Skin: Normal Color, Warm/Dry (DIDI OLIVER APRN) Progress/Results/Core Measures Suspected Sepsis SIRS Temperature: Pulse: 72 Respiratory Rate: 19 Blood Pressure 109 /68 Mean: 82 (DEBBIE MIMS MD) Results/Orders Lab Results Laboratory Tests Test 11/04/22 17:26 11/04/22 17:41 Range/Units White Blood Count 13.3 H 4.3-11.0 10^3/uL Red Blood Count 3.65 L 4.30-5.52 10^6/uL Hemoglobin 11.0 L 13.3-17.7 g/dL Hematocrit 34 L 40-54 % Mean Corpuscular Volume 92 80-99 fL Mean Corpuscular Hemoglobin 30 25-34 pg Mean Corpuscular Hemoglobin Concent 33 32-36 g/dL Red Cell Distribution Width 12.7 10.0-14.5 % Platelet Count 328 130-400 10^3/uL Mean Platelet Volume 9.5 9.0-12.2 fL Immature Granulocyte % (Auto) 1 % Neutrophils (%) (Auto) 50 42-75 % Lymphocytes (%) (Auto) 35 12-44 % Monocytes (%) (Auto) 9 0-12 % Eosinophils (%) (Auto) 5 0-10 % Basophils (%) (Auto) 0 0-10 % Neutrophils # (Auto) 6.6 1.8-7.8 10^3/uL Lymphocytes # (Auto) 4.7 H 1.0-4.0 10^3/uL Monocytes # (Auto) 1.3 H 0.0-1.0 10^3/uL Eosinophils # (Auto) 0.7 H 0.0-0.3 10^3/uL Basophils # (Auto) 0.1 0.0-0.1 10^3/uL Immature Granulocyte # (Auto) 0.1 0.0-0.1 10^3/uL Prothrombin Time 13.7 12.2-14.7 SEC INR Comment 1.0 0.8-1.4 Activated Partial Thromboplast Time 29 24-35 SEC Sodium Level 137 135-145 MMOL/L Potassium Level 3.2 L 3.6-5.0 MMOL/L Chloride Level 103 98-107 MMOL/L Carbon Dioxide Level 26 21-32 MMOL/L Anion Gap 8 5-14 MMOL/L Blood Urea Nitrogen 11 7-18 MG/DL Creatinine 0.81 0.60-1.30 MG/DL Estimat Glomerular Filtration Rate 102 BUN/Creatinine Ratio 14 Glucose Level 117 H 70-105 MG/DL Calcium Level 8.2 L 8.5-10.1 MG/DL Corrected Calcium 8.9 8.5-10.1 MG/DL Magnesium Level 2.0 1.6-2.4 MG/DL Total Bilirubin 0.5 0.1-1.0 MG/DL Aspartate Amino Transf (AST/SGOT) 14 5-34 U/L Alanine Aminotransferase (ALT/SGPT) 21 0-55 U/L Alkaline Phosphatase 88 40-136 U/L Total Protein 6.3 L 6.4-8.2 GM/DL Albumin 3.1 L 3.2-4.5 GM/DL Lipase 8 8-78 U/L Serum Alcohol < 10 <10 MG/DL Urine Color YELLOW Urine Clarity CLOUDY Urine pH 6.0 5-9 Urine Specific [place] >=1.030 1.016-1.022 Urine Protein 2+ H NEGATIVE Urine Glucose (UA) NEGATIVE NEGATIVE Urine Ketones TRACE H NEGATIVE Urine Nitrite NEGATIVE NEGATIVE Urine Bilirubin 2+ H NEGATIVE Urine Urobilinogen 4.0 < = 1.0 MG/DL Urine Leukocyte Esterase TRACE H NEGATIVE Urine RBC (Auto) TRACE-I H NEGATIVE Urine RBC NONE /HPF Urine WBC 10-25 H /HPF Urine Squamous Epithelial Cells 0-2 /HPF Urine Renal Epithelial Cells NONE /HPF Urine Crystals NONE /LPF Urine Bacteria NEGATIVE /HPF Urine Casts NONE /LPF Urine Mucus LARGE H /LPF Urine Culture Indicated YES Urine Opiates Screen NEGATIVE NEGATIVE Urine Oxycodone Screen POSITIVE H NEGATIVE Urine Methadone Screen NEGATIVE NEGATIVE Urine Propoxyphene Screen NEGATIVE NEGATIVE Urine Barbiturates Screen NEGATIVE NEGATIVE Ur Tricyclic Antidepressants Screen POSITIVE H NEGATIVE Urine Phencyclidine Screen NEGATIVE NEGATIVE Urine Amphetamines Screen POSITIVE H NEGATIVE Urine Methamphetamines Screen POSITIVE H NEGATIVE Urine Benzodiazepines Screen NEGATIVE NEGATIVE Urine Cocaine Screen NEGATIVE NEGATIVE Urine Cannabinoids Screen POSITIVE H NEGATIVE (DIDI OLIVER APRN) My Orders Orders - DIDI OLIVER APRN Ct Head/Cervical Spine Wo (11/04/22 17:52) Ceftriaxone 1 Gm Pre-Mix (Rocephin 1 Gm (11/04/22 18:00) Ns Iv 1000 Ml (Sodium Chloride 0.9%) (11/04/22 20:25) (DIDI OLIVER APRN) Medications Given in ED Current Medications Medications Dose Ordered Sig/Alo Route Start Time Stop Time Status Last Admin Dose Admin Ceftriaxone Sodium/Dextrose 50 ml @ 100 mls/hr ONCE ONCE IV 11/04/22 18:00 11/04/22 18:29 DC 11/04/22 18:20 100 MLS/HR Sodium Chloride 1,000 ml @ ud STK-MED ONCE .ROUTE 11/04/22 20:25 11/04/22 20:28 DC 11/04/22 20:34 1,000 MLS/HR (DIDI OLIVER APRN) Vital Signs/I&O 11/04/22 17:20 Temp 35.8 Pulse 72 Resp 19 B/P (MAP) 109/68 (82) Pulse Ox 97 O2 Delivery Room Air (DIDI OLIVER APRN) Vital Signs/I&O Capillary Refill : Less Than 3 Seconds (DEBBIE MIMS MD) Blood Pressure Mean: 82 Departure Communication (Admissions) 1849 I took over care of this patient at 1800. He has subsequently become more awake. He complains of left earache. The left eardrum is erythematous and bulging, no foreign body in the canal. I gave him Rocephin for a UTI which will also treat this otitis. I will put him on some Augmentin at home. He is alert, states he does not know what happened this evening but he assures me he did not overdose on drugs. He states that he is feeling bad but his mental status has improved significantly. Arousable to verbal stimuli, heart rate 62 sinus no ectopy respiratory rate 16 oxygen 97% room air blood pressure 106/63. 2043-mental status seems to have plateaued. He is arousable to verbal stimuli but quickly falls back asleep. He does follow commands and will move all extremities on command. Would benefit from observation admission given his ongoing lethargy. Heart rate still 64, oxygen 100% room air, respiratory rate 15, blood pressure 108/64. Spoke with Dr. Hunter on-call for hospitalist, will admit. NAME: RADHA WANG [facility] REC#: [id number] PT STATUS: REG ER : 1965 PHYSICIAN: DIDI OLIVER APRN ADMIT DATE: 11/04/22/ER Draft Date of Exam:11/04/22 CT HEAD/CERVICAL SPINE WO PROCEDURE: CT head and CT cervical spine without contrast. TECHNIQUE: Multiple contiguous axial images were obtained through the brain and cervical spine without the use of intravenous contrast. Sagittal and coronal reformations through the cervical spine were then performed. Auto Exposure Controls were utilized during the CT exam to meet ALARA standards for radiation dose reduction. INDICATION: Headache, unresponsive COMPARISON: 12/16/2019 FINDINGS: No intrarenal hemorrhage. No intracranial mass, mass effect, midline shift, herniation, hydrocephalus, or extra-axial fluid collection. No CT evidence of an acute ischemic infarction. The orbits are unremarkable. Near-complete opacification of the bilateral maxillary sinuses as well as the ethmoid air cells. Partial opacification of the left mastoid air cells. The calvarium is intact. Straightening of the normal cervical lordosis. No significant anterolisthesis or retrolisthesis. Alignment of the atlantooccipital joint is well maintained. Chronic vertebral body height loss is noted throughout the majority of the cervical spine, appearing similar to the prior examination without evidence of a recent vertebral body compression deformity. No acute fracture or dislocation. No destructive osseous process. Moderate multilevel degenerative changes are again identified throughout the cervical spine with disc space height loss, facet joint degenerative changes and uncovertebral joint hypertrophy. There is resulting at least mild central canal stenosis at multiple levels with multilevel up to moderate neural foraminal stenosis. Paraseptal emphysematous changes within the lung apices without apical pneumothorax. The paraspinal soft tissues are otherwise unremarkable. IMPRESSION: No acute intracranial abnormality. Significant opacification of the bilateral maxillary sinuses and ethmoid air cells with minimal opacification of the left mastoid air cells. Recommend clinical correlation for acute sinusitis. No acute osseous abnormality within the cervical spine with [id number] multilevel degenerative changes. Straightening of the normal cervical lordosis, which may simply be positional, though can also relate to muscle spasm. Mild emphysematous changes within the lung apices. Dictated on workstation # [id number] Dict: 11/04/221816 Trans: 11/04/221824 [facility] [id number] Interpreted by: HODA RODAS MD Electronically signed by: (DIDI OLIVER APRN) Impression Primary Impression: Unresponsive episode Additional Impressions: Left otitis media Polysubstance abuse Disposition: ADMITTED INPATIENT Condition: Stable Admissions Decision to Admit Reason: Admit from ER (General) Decision to Admit/Date: Nov 04, 2022 Time/Decision to Admit Time: 20:45 (DIDI OLIVER APRN) Departure-Patient Inst. Decision time for Depature: 19:31 (DIDI OLIVER APRN) Referrals: NO,LOCAL PHYSICIAN (PCP/Family) Primary Care Physician Patient Instructions: Ear Infection ED Scripts Amoxicillin/Potassium Clav (Augmentin 500-125 Tablet) 500 Mg-125 Mg Tablet 1 EACH PO BID, #14 TAB Prov: DIDI OLIVER APRN 11/04/22 DEBBIE MIMS MD Nov 04, 2022 17:34 DIDI OLIVER APRN Nov 04, 2022 18:40
[2022-11-04 17:46] LABS: BASOPHILS # (AUTO) 0.1 10^3/uL (0.0-0.1); BASOPHILS % (AUTO) 0 % (0-10); EOSINOPHILS # (AUTO) 0.7 10^3/uL (0.0-0.3); EOSINOPHILS % (AUTO) 5 % (0-10); HEMATOCRIT 34 % (40-54); LYMPHOCYTES # (AUTO) 4.7 10^3/uL (1.0-4.0); LYMPHOCYTES % (AUTO) 35 % (12-44); MEAN CORPUSCULAR HEMOGLOBIN 30 pg (25-34); MEAN CORPUSCULAR HGB CONC 33 g/dL (32-36); MEAN CORPUSCULAR VOLUME 92 fL (80-99); MEAN PLATELET VOLUME 9.5 fL (9.0-12.2); MONOCYTES # (AUTO) 1.3 10^3/uL (0.0-1.0); MONOCYTES % (AUTO) 9 % (0-12); NEUTROPHILS # (AUTO) 6.6 10^3/uL (1.8-7.8); NEUTROPHILS % (AUTO) 50 % (42-75); PLATELET COUNT 328 10^3/uL (130-400); WHITE BLOOD COUNT 13.3 10^3/uL (4.3-11.0)
[2022-11-04 17:48] LABS: BILIRUBIN,URINE 2+ (NEGATIVE); CLARITY,URINE CLOUDY; COLOR,URINE YELLOW; GLUCOSE, URINE (UA) NEGATIVE (NEGATIVE); KETONES,URINE TRACE (NEGATIVE); LEUKOCYTE ESTERASE ,URINE TRACE (NEGATIVE); NITRITE,URINE NEGATIVE (NEGATIVE); PROTEIN,URINE 2+ (NEGATIVE)
[2022-11-04 17:53] LABS: PROTHROMBIN TIME PATIENT 13.7 SEC (12.2-14.7)
[2022-11-04 17:55] LABS: BACTERIA,URINE NEGATIVE /HPF; SQUAMOUS EPITHELIAL CELL,UR 0-2 /HPF
[2022-11-04 17:57] LABS: AMPHETAMINE SCREEN, URINE POSITIVE (NEGATIVE); BARBITURATE SCREEN URINE NEGATIVE (NEGATIVE); BENZODIAZEPINES SCREEN URINE NEGATIVE (NEGATIVE); CANNABINOID SCREEN, URINE POSITIVE (NEGATIVE); COCAINE SCREEN URINE NEGATIVE (NEGATIVE); METHADONE STAT NEGATIVE (NEGATIVE); OPIATE SCREEN URINE NEGATIVE (NEGATIVE); OXYCODONE STAT POSITIVE (NEGATIVE); PROPOXYPHENE STAT NEGATIVE (NEGATIVE); TRICYCLIC ANTIDEPRESSANTS SCRE POSITIVE (NEGATIVE)
--- NOTE | 2022-11-04 17:58 | Diagnostic Imaging Report ---
EXAMINATION: Chest radiograph, portable AP view. DATE: 11/04/2022 5:47 PM INDICATION: 57-year-old male, altered mental status. COMPARISON: Chest radiographs July 20, 2019. FINDINGS: Heart size and mediastinal contours are unchanged. There is no identified pneumothorax. There is no large pleural effusion. There is no identified focal airspace consolidation. There is likely material external to the patient. IMPRESSION: 1. No identified acute cardiopulmonary abnormality. Dictated by: Dictated on workstation # [id number]
[2022-11-04] MEDS ORDERED: cefTRIAXone 1 GM PRE-MIX 50 ML IV ONE (18:00)
[2022-11-04 18:03] LABS: ALBUMIN 3.1 GM/DL (3.2-4.5); CHLORIDE 103 MMOL/L (98-107); POTASSIUM 3.2 MMOL/L (3.6-5.0); SODIUM 137 MMOL/L (135-145)
[2022-11-04 18:04] LABS: CALCIUM 8.2 MG/DL (8.5-10.1)
[2022-11-04 18:05] LABS: GLUCOSE 117 MG/DL (70-105); TOTAL PROTEIN 6.3 GM/DL (6.4-8.2)
[2022-11-04 18:06] LABS: CARBON DIOXIDE 26 MMOL/L (21-32)
[2022-11-04 18:07] LABS: BILIRUBIN,TOTAL 0.5 MG/DL (0.1-1.0)
[2022-11-04 18:09] LABS: ALKALINE PHOSPHATASE 88 U/L (40-136); CREATININE SERUM 0.81 MG/DL (0.60-1.30); GFR ESTIMATED 102
[2022-11-04 18:10] LABS: BUN/CREATININE RATIO 14
[2022-11-04 18:12] LABS: ALANINE AMINOTRANSFERASE 21 U/L (0-55)
[2022-11-04 18:13] LABS: LIPASE 8 U/L (8-78)
--- NOTE | 2022-11-04 18:26 | Diagnostic Imaging Report ---
PROCEDURE: CT head and CT cervical spine without contrast. TECHNIQUE: Multiple contiguous axial images were obtained through the brain and cervical spine without the use of intravenous contrast. Sagittal and coronal reformations through the cervical spine were then performed. Auto Exposure Controls were utilized during the CT exam to meet ALARA standards for radiation dose reduction. INDICATION: Headache, unresponsive COMPARISON: 12/16/2019 FINDINGS: No intrarenal hemorrhage. No intracranial mass, mass effect, midline shift, herniation, hydrocephalus, or extra-axial fluid collection. No CT evidence of an acute ischemic infarction. The orbits are unremarkable. Near-complete opacification of the bilateral maxillary sinuses as well as the ethmoid air cells. Partial opacification of the left mastoid air cells. The calvarium is intact. Straightening of the normal cervical lordosis. No significant anterolisthesis or retrolisthesis. Alignment of the atlantooccipital joint is well maintained. Chronic vertebral body height loss is noted throughout the majority of the cervical spine, appearing similar to the prior examination without evidence of a recent vertebral body compression deformity. No acute fracture or dislocation. No destructive osseous process. Moderate multilevel degenerative changes are again identified throughout the cervical spine with disc space height loss, facet joint degenerative changes and uncovertebral joint hypertrophy. There is resulting at least mild central canal stenosis at multiple levels with multilevel up to moderate neural foraminal stenosis. Paraseptal emphysematous changes within the lung apices without apical pneumothorax. The paraspinal soft tissues are otherwise unremarkable. IMPRESSION: No acute intracranial abnormality. Significant opacification of the bilateral maxillary sinuses and ethmoid air cells with minimal opacification of the left mastoid air cells. Recommend clinical correlation for acute sinusitis. No acute osseous abnormality within the cervical spine with [id number]-[id number] multilevel degenerative changes. Straightening of the normal cervical lordosis, which may simply be positional, though can also relate to muscle spasm. Mild emphysematous changes within the lung apices. Dictated by: Dictated on workstation # [id number]
[2022-11-04] MEDS ORDERED: AMOX-355 PO (19:31)
[2022-11-04] MEDS ORDERED: NS IV 1000 ML 1,000 ML ONE (20:25)
[2022-11-04] MEDS ORDERED: polyethylene glycoL POWDER 17 GM (MIRALAX) PACK PO PRN (21:45)
[2022-11-04] MEDS ORDERED: LACTULOSE SYRUP 10GM/15ML (ENULOSE) 30ML UDC PO PRN (21:45)
[2022-11-04] MEDS ORDERED: diphenhydrAMINE 50 MG/ML INJ (BENADRYL) IVP PRN (21:45)
[2022-11-04] MEDS ORDERED: BISACODYL 10 MG SUPP (DULCOLAX) PR PRN (21:45)
[2022-11-04] MEDS ORDERED: ONDANSETRON 4 MG/2 ML (SDV) Z0FRAN IV PRN (21:45)
[2022-11-04] MEDS ORDERED: ZIPRASIDONE 20 MG INJ (GEODON) VIAL IM PRN (21:45)
[2022-11-04] MEDS ORDERED: ENOXAPARIN 40 MG/0.4 ML (LOVENOX) SYR SC SCH (21:45)
[2022-11-04] MEDS ORDERED: ONDANSETRON 4 MG (ZOFRAN) ORAL DISSOLVE TAB PO PRN (21:45)
[2022-11-04] MEDS ORDERED: ANTACID SUSP 30 ML UDC (MYLANTA) PO PRN (21:45)
[2022-11-04] MEDS ORDERED: MELATONIN 3 MG TABLET PO PRN (21:45)
[2022-11-04] MEDS ORDERED: LORazepam INJ 2 MG/ML (ATIVAN) VIAL IVP PRN (21:45)
[2022-11-04] MEDS ORDERED: WATER (STERILE) FOR INJ 10 ML BTL INJ SCH (21:45)
[2022-11-04] MEDS ORDERED: diphenhydrAMINE 25 MG TAB (BENADRYL) PO PRN (21:45)
[2022-11-04] MEDS ORDERED: morphine INJ 4 MG/ML 1 ML (VIAL/SYRINGE) IV PRN (21:45)
[2022-11-04] MEDS ORDERED: CALCIUM CARBONATE 500 MG (TUMS) TAB.CHEW PO PRN (21:45)
[2022-11-04] MEDS ORDERED: ACETAMINOPHEN 325 MG TABLET PO PRN (21:45)
[2022-11-04] MEDS ORDERED: MILK OF MAGNESIA 400 MG/5 ML 30 ML UDC PO PRN (21:45)
[2022-11-04 22:00] VITALS: BP 115/71
[2022-11-04] MEDS: NS IV 1000 ML 1,000 ML IV SCH (22:22)
[2022-11-05 01:10] VITALS: BP 124/72
[2022-11-05 01:17] VITALS: BP 113/71
[2022-11-05] MEDS ORDERED: RT-ALBUTEROL/IPRATROPIUM 3 ML (DUONEB) VIAL INH PRN (01:30)
[2022-11-05 04:17] VITALS: BP 123/72
[2022-11-05] MEDS: NS IV 1000 ML 1,000 ML IV SCH ×2 (05:19→14:19)
[2022-11-05 05:37] LABS: BASOPHILS # (AUTO) 0.1 10^3/uL (0.0-0.1); BASOPHILS % (AUTO) 1 % (0-10); EOSINOPHILS # (AUTO) 0.6 10^3/uL (0.0-0.3); EOSINOPHILS % (AUTO) 5 % (0-10); HEMATOCRIT 37 % (40-54); LYMPHOCYTES # (AUTO) 2.6 10^3/uL (1.0-4.0); LYMPHOCYTES % (AUTO) 24 % (12-44); MEAN CORPUSCULAR HEMOGLOBIN 30 pg (25-34); MEAN CORPUSCULAR HGB CONC 33 g/dL (32-36); MEAN CORPUSCULAR VOLUME 92 fL (80-99); MEAN PLATELET VOLUME 9.4 fL (9.0-12.2); MONOCYTES # (AUTO) 0.8 10^3/uL (0.0-1.0); MONOCYTES % (AUTO) 8 % (0-12); NEUTROPHILS # (AUTO) 6.6 10^3/uL (1.8-7.8); NEUTROPHILS % (AUTO) 61 % (42-75); PLATELET COUNT 376 10^3/uL (130-400); WHITE BLOOD COUNT 10.7 10^3/uL (4.3-11.0)
[2022-11-05 05:50] LABS: ALBUMIN 3.2 GM/DL (3.2-4.5)
[2022-11-05 05:51] LABS: POTASSIUM 3.9 MMOL/L (3.6-5.0)
[2022-11-05 05:52] LABS: CALCIUM 8.4 MG/DL (8.5-10.1)
[2022-11-05 05:53] LABS: TOTAL PROTEIN 6.7 GM/DL (6.4-8.2)
[2022-11-05 05:55] LABS: BILIRUBIN,TOTAL 0.5 MG/DL (0.1-1.0)
[2022-11-05 05:57] LABS: CREATININE SERUM 0.72 MG/DL (0.60-1.30)
[2022-11-05] MEDS ORDERED: FLU QUADRIvalent (6 months+) 60 mcg/0.5 ml 2022-23 (Fluzone) IM ONE (06:45)
[2022-11-05 08:04] VITALS: BP 119/71
[2022-11-05] MEDS ORDERED: AUGMENTIN 875 MG TAB (AMOXICILLIN/CLAVULANATE) PO SCH (08:15)
[2022-11-05] MEDS ORDERED: SENNOSIDES 8.6 MG (SENOKOT) TAB PO SCH (09:00)
[2022-11-05] MEDS ORDERED: DOCUSATE SODIUM 100 MG (COLACE) CAP PO SCH (09:00)
[2022-11-05 11:02] VITALS: BP 121/75
--- NOTE | 2022-11-05 17:25 | Discharge Summary ---
Discharge Summary Hospital Course Problems/Dx: (1) Unresponsive episode Status: Acute (2) Methamphetamine intoxication Status: Acute (3) Polysubstance abuse Status: Acute (4) Left otitis media Status: Acute Hospital Course Date of Admission: Nov 04, 2022 at 21:07 Admission Diagnosis: Unresponsiveness, methamphetamine intoxication Family Physician/Provider: [facility] Date of Discharge: 11/05/22 Discharge Diagnosis: Unresponsiveness due to acute methamphetamine intoxication, polysubstance abuse, otitis media Hospital Course: Prasanth Robb is a 57 year old male who presented with unresponsiveness and was admitted with acute methamphetamine intoxiction. He was also positive for oxycodone, tricyclics, and cannabis. His mental status improved. He was medically stable. He was discharged home in improved condition. Social work provided paperwork for assistance due to his water being turned off at home. He was referred to [facility] to establish with a primary care physician. Labs and Pending Lab Test: Laboratory Tests 11/04/22 17:26: White Blood Count 13.3H, Red Blood Count 3.65L, Hemoglobin 11.0L, Hematocrit 34L , Mean Corpuscular Volume 92, Mean Corpuscular Hemoglobin 30, Mean Corpuscular Hemoglobin Concent 33, Red Cell Distribution Width 12.7, Platelet Count 328, Mean Platelet Volume 9.5, Immature Granulocyte % (Auto) 1, Neutrophils (%) (Auto) 50, Lymphocytes (%) (Auto) 35, Monocytes (%) (Auto) 9, Eosinophils (%) (Auto) 5, Basophils (%) (Auto) 0, Neutrophils # (Auto) 6.6, Lymphocytes # (Auto) 4.7H, Monocytes # (Auto) 1.3H, Eosinophils # (Auto) 0.7H, Basophils # (Auto) 0.1, Immature Granulocyte # (Auto) 0.1, Prothrombin Time 13.7, INR Comment 1.0, Activated Partial Thromboplast Time 29, Sodium Level 137, Potassium Level 3.2L, Chloride Level 103, Carbon Dioxide Level 26, Anion Gap 8, Blood Urea Nitrogen 11, Creatinine 0.81, Estimat Glomerular Filtration Rate 102, BUN/Creatinine Ratio 14, Glucose Level 117H, Calcium Level 8.2L, Corrected Calcium 8.9, Magnesium Level 2.0, Total Bilirubin 0.5, Aspartate Amino Transf (AST/SGOT) 14, Alanine Aminotransferase (ALT/SGPT) 21, Alkaline Phosphatase 88, Total Protein 6.3L, Albumin 3.1L, Lipase 8, Serum Alcohol < 10 11/04/22 17:41: Urine Color YELLOW, Urine Clarity CLOUDY, Urine pH 6.0, Urine Specific [place] >=1.030, Urine Protein 2+H, Urine Glucose (UA) NEGATIVE, Urine Ketones TRACEH, Urine Nitrite NEGATIVE, Urine Bilirubin 2+H, Urine Urobilinogen 4.0, Urine Leukocyte Esterase TRACEH, Urine RBC (Auto) TRACE-IH, Urine RBC NONE, Urine WBC 10-25H, Urine Squamous Epithelial Cells 0-2, Urine Renal Epithelial Cells NONE, Urine Crystals NONE, Urine Bacteria NEGATIVE, Urine Casts NONE, Urine Mucus LARGEH, Urine Culture Indicated YES, Urine Opiates Screen NEGATIVE, Urine Oxycodone Screen POSITIVEH, Urine Methadone Screen NEGATIVE, Urine Propoxyphene Screen NEGATIVE, Urine Barbiturates Screen NEGATIVE, Ur Tricyclic Antidepressants Screen POSITIVEH, Urine Phencyclidine Screen NEGATIVE, Urine Amphetamines Screen POSITIVEH, Urine Methamphetamines Screen POSITIVEH, Urine Benzodiazepines Screen NEGATIVE, Urine Cocaine Screen NEGATIVE, Urine Cannabinoids Screen POSITIVEH 11/05/22 05:25: White Blood Count 10.7, Red Blood Count 4.01L, Hemoglobin 12.0L, Hematocrit 37L, Mean Corpuscular Volume 92, Mean Corpuscular Hemoglobin 30, Mean Corpuscular Hemoglobin Concent 33, Red Cell Distribution Width 12.7, Platelet Count 376, Mean Platelet Volume 9.4, Immature Granulocyte % (Auto) 1, Neutrophils (%) (Auto) 61, Lymphocytes (%) (Auto) 24, Monocytes (%) (Auto) 8, Eosinophils (%) (Auto) 5, Basophils (%) (Auto) 1, Neutrophils # (Auto) 6.6, Lymphocytes # (Auto) 2.6, Monocytes # (Auto) 0.8, Eosinophils # (Auto) 0.6H, Basophils # (Auto) 0.1, Immature Granulocyte # (Auto) 0.1, Sodium Level 139, Potassium Level 3.9, Chloride Level 107, Carbon Dioxide Level 24, Anion Gap 8, Blood Urea Nitrogen 9, Creatinine 0.72, Estimat Glomerular Filtration Rate 105, BUN/Creatinine Ratio 13, Glucose Level 78, Calcium Level 8.4L, Corrected Calcium 9.0, Total Bilirubin 0.5, Aspartate Amino Transf (AST/SGOT) 13, Alanine Aminotransferase (ALT/SGPT) 21, Alkaline Phosphatase 92, Total Protein 6.7, Albumin 3.2 Microbiology 11/04/22 Urine Culture - Preliminary, Resulted Culture In Progress Home Meds Active Augmentin 500-125 Tablet (Amoxicillin/Potassium Clav) 500 Mg-125 Mg Tablet 1 Each PO BID Ibuprofen 800 Mg Tablet 800 Mg PO Q8H PRN 7 Days Tylenol Extra Strength (Acetaminophen) 500 Mg Tablet 1,000 Mg PO Q8H PRN 7 Days Azithromycin 250 Mg Tablet 250 Mg PO UD TAKE 2 TABLETS ON DAY ONE THEN TAKE 1 TABLET DAILY FOR FOUR MORE DAYS Assessment/Pt Instructions See instructions Discharge Planning: <30 minutes discharge planning Discharge Instructions Discharge Diet: No Restrictions Activity as Tolerated: Yes Discharge Physical Examination Vital Signs Vital Signs Date Time Temp Pulse Resp B/P (MAP) Pulse Ox O2 Delivery O2 Flow Rate FiO2 11/05/22 12:59 69 11/05/22 11:02 37.2 18 121/75 (90) 97 Room Air 11/05/22 01:17 21 General Appearance: No Apparent Distress, WD/WN Respiratory: No Chest Non Tender; Lungs Clear, No Respiratory Distress Cardiovascular: Regular Rate, Rhythm, No Murmur Gastrointestinal: Normal Bowel Sounds, Soft Extremity: Normal Inspection, No Pedal Edema Skin: Normal Color, Warm/Dry Neurologic/Psychiatric: Alert, Normal Mood/Affect Allergies: Coded Allergies: No Known Drug Allergies (Unverified , 09/22/10) Discharge Summary Date of Admission Nov 04, 2022 at 21:07 Date of Discharge Nov 05, 2022 at 15:05 Discharge Date: Nov 05, 2022 Discharge Time: 15:05 Admission Diagnosis Unresponsiveness Discharge Diagnosis (1) Unresponsive episode Status: Acute (2) Methamphetamine intoxication Status: Acute (3) Polysubstance abuse Status: Acute (4) Left otitis media Status: Acute CAROLANN HUDSON MD Nov 05, 2022 17:12
[2022-11-05] MEDS ORDERED: cefTRIAXone 1 GM PRE-MIX 50 ML IV SCH (18:30)
== END 2022-11-05 15:05 | disposition home or self-care (01) ==
LOC: EDUNIT# 17:18 → ER 17:19 → 4TH 21:07 → UNDOADMOB 21:07 → 4TH 22:00 → UNDODISOB 11-05 15:05
PROVIDERS: ADMIT Internal Medicine; ATTEND Internal Medicine
DX: F15.129 Other stimulant abuse with intoxication, unspecified (principal); F19.129 Other psychoactive substance abuse with intoxication, unspecified; R40.4 Transient alteration of awareness; H66.92 Otitis media, unspecified, left ear
CPT/HCPCS: 51702; 70450; 71045; 72125; 80053; 80306; 81000; 83690; 83735; 85025; 85610; 85730; 87088; G0480; 36415; 80320; 96361; 96372; G0378